=== PATIENT | female | born 1980 | race Hispanic/Latino ===

== ENCOUNTER 2020-06-11 06:36 | Day surgery (SDC) | payer BC ==
[2020-06-06 11:54] LABS: Absolute Lymphocytes (CBC) 2.5 K/uL (0.7-4.9); Basophils % 0.5 % (0-1.3); Hematocrit 35.5 % (36.0-45.0); Lymphocytes % 41.4 % (15.3-44.8); MPV 9.4 fL (7.6-11.3); RBC Red Blood Cell Count 4.13 M/uL (3.86-4.86)
[2020-06-06 12:21] LABS: Albumin 3.8 g/dL (3.4-5.0); Bilirubin Direct 0.1 mg/dL (0-0.2); Bilirubin Total 0.6 mg/dL (0.2-1.0); Potassium 3.8 mmol/L (3.5-5.1); Protein, Total 7.5 g/dL (6.4-8.2)
--- OUTSIDE RECORDS SUMMARY | 2020-06-11 06:40 | XMS REPORT | Continuity of Care Document ---
:1980 Author Organization [facility] t Address [address] [place] [address] Care Team Providers Name Role Phone Unavailable Unavailable Unavailable Payers Payer Name Policy Type Policy Number Effective Date Expiration Date S ource Problems This patient has no known problems. Allergies, Adverse Reactions, Alerts Allergy Allergy Status Severity Reaction(s) Onset Inactive Treating Comm ents Source Name Type Date Date Clinician No Known DA Active [facility]10 [facility] [place] Medications This patient has no known medications. Procedures This patient has no known procedures. Results Test Description Test Time Test Comments Results Result [facility] linda Comments [facility] 2020-04-11 TRIMESTER 15:29:00 --------RUN DATE: 04/14/20 [facility] PAGE 1 RUN TIME: 918 Specimen Inquiry RUN USER: INTERFACE --------[id number] #: [id number] AGE/SX: 39/F ROOM: 2051 RE04/10/20REG DR: Jaime Talbot MD : 82 BED: A DIS: 04/12/20 STATUS: DIS IN TLOC: -------- SPEC #: [id number] RECD: 04/10/20 STATUS: YAMIL RE #: [id number] YULIYA: 04/10/20- SUBM DR: Jaime Talbot MD ENTERED: 04/10/20 SP TYPE: PLACIII OTHR DR: ORDERED: LEVEL V SURGICA/3 CODES: [id number] - FALLOPIAN TUBE [id number] - PLACENTA, NOS PROCEDURES: LEVEL V SURGICA (Incomplete) TISSUES: PLACENTA, NOS - PLACENTA FALLOPIAN TUBE, NOS - BILATERAL FALLOPIAN TUBES CLINICAL HISTORY 39 year old, 38 weeks, section, 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 Left tube 2. Right tube 3. Placenta Each specimen is labeled with the patient's name and medical record number. Specimen #1 is designated "left tube" and consists of a 5.0 x 0.5 cm fallopian tube segment with fimbriae. Sectioning reveals a pinpoint lumen. Industrial Engineering Intern CONTINUED ON NEXT PAGE --------RUN DATE: 04/14/20 [facility] PAGE 2 RUN TIME: 918 Specimen Inquiry RUN USER: INTERFACE --------SPEC #: [id number] PATIENT: BRAYAN BLEVINS #[id number] (Continued) GROSS DESCRIPTION (Continued) sections are submitted in A1. Specimen #2 is designated "right tube" and consists of a 6.5 x 0.7 cm daniels-pink fallopian tube segment with fimbriae. Sectioning reveals a pinpoint lumen. Industrial Engineering Intern sections are submitted in B1. Specimen #3 was received in a container, labeled with the patient's name, unit number and designated "placenta". The following attributes are observed: Cord insertion: 8 cm from margin Cord length: 85 cm Number of vessels: 3 Cord color: Daniels-white Other cord findings: None surface findings: Blue-purple, wrinkled, glistening Vasculature: Displays unremarkable blood vasculature Membranes rupture site: 10 cm to margin Membrane color: Daniels-pink Other membrane findings: Semi-translucent The trimmed placental weight: 875 gm Disk measurement: 20 x 20 x 3 cm in greatest dimension Accessory lobes: None Maternal surface: Lobulated and disrupted, completeness cannot be determined Parenchyma: Red-brown and spongy Parenchyma lesions: None Cassettes: C1 through C4 wilbur 04/10/20 Signed Peyton Martinez MD 04/11/20 1529 -------- END OF REPORT RUBELLA SCREEN 2020-04-11 06:27:00 Test Item Value Reference Range Interpretation Comme nts RUBELLA SCREEN (test code = >500.0 IUnit/ml Results >10.0IUnits/ml are considered RUBSC) positive inacco rdance with the CLSI guidelines and based on the WHO International S tandard for Anti-Rubella se rum as anindicator of immune status a nd a breakpoint to detect mostsero positive persons. HGB [id number] 06:02:00 Test Item Value Reference Range Interpretation Comments HEMOGLOBIN (test code = HGB) 9.0 g/dL 10.7-13.9 L HEMATOCRIT (test code = HCT) 29.4 % 32.1-42.1 L AG HEPATITIS B [id number] 18:48:00 Test Item Value Reference Range Interpretation Comments AG HEPATITIS B SURFACE (test code NONREACTIVE NONREACTIVE = HBSAG) IS CONSENT FORM SIGNED FOR HIV TESTING? YAB HEPATITIS C [id number] 18:48:00 Test Item Value Reference Range Interpretation Comments AB HEPATITIS C (test code = NONREACTIVE NONREACTIVE HCVAB) SIGNAL TO CUTOFF (test code = 0.03 <0.80 N CUTOFF) IS CONSENT FORM SIGNED FOR HIV TESTING? YAB [id number] 18:48:00 Test Item Value Reference Range Interpretation Comments AB TREPONEMA (test code = TREPAB) NONREACTIVE NONREACTIVE IS CONSENT FORM SIGNED FOR HIV TESTING? YAB HIV 1 18:48:00 Test Item Value Reference Range Interpretation Comments AB HIV 1 2 (test NONREACTIVE NONREACTIVE Done by [facility] code = [id number]) 4th Gen HIV Ag/Ab Combo Screen IS CONSENT FORM SIGNED FOR HIV TESTING? YAG HEPATITIS B [id number] 18:45:00 Test Item Value Reference Range Interpretation Comments AG HEPATITIS B SURFACE (test code NONREACTIVE NONREACTIVE = HBSAG) IS CONSENT FORM SIGNED FOR HIV TESTING? VIKASB HEPATITIS C [id number] 18:45:00 Test Item Value Reference Range Interpretation Comments AB HEPATITIS C (test code = HCVAB) NONREACTIVE SIGNAL TO CUTOFF (test code = CUTOFF) <0.80 IS CONSENT FORM SIGNED FOR HIV TESTING? VIKASB [id number] 18:45:00 Test Item Value Reference Range Interpretation Comments AB TREPONEMA (test code = TREPAB) NONREACTIVE NONREACTIVE IS CONSENT FORM SIGNED FOR HIV TESTING? YAB HIV 1 18:45:00 Test Item Value Reference Range Interpretation Comments AB HIV 1 2 (test code = [id number]) NONREACTIVE IS CONSENT FORM SIGNED FOR HIV TESTING? YAG HEPATITIS B [id number] 18:45:00 Test Item Value Reference Range Interpretation Comments AG HEPATITIS B SURFACE (test code NONREACTIVE NONREACTIVE = HBSAG) IS CONSENT FORM SIGNED FOR HIV TESTING? YAB HEPATITIS C [id number] 18:45:00 Test Item Value Reference Range Interpretation Comments AB HEPATITIS C (test code = NONREACTIVE NONREACTIVE HCVAB) SIGNAL TO CUTOFF (test code = 0.03 <0.80 N CUTOFF) IS CONSENT FORM SIGNED FOR HIV TESTING? YAB [id number] 18:45:00 Test Item Value Reference Range Interpretation Comments AB TREPONEMA (test code = TREPAB) NONREACTIVE NONREACTIVE IS CONSENT FORM SIGNED FOR HIV TESTING? YAB HIV 1 18:45:00 Test Item Value Reference Range Interpretation Comments AB HIV 1 2 (test code = PMS99SE) NONREACTIVE IS CONSENT FORM SIGNED FOR HIV TESTING? YCOVID 19 Asymptomatic IH [id number] 17:47:00 Test Item Value Reference Range Interpretation Comments COVID 19 NEGATIVE NEGATIVE This test has b een Asymptomatic IH AG authorize d only for the (test code = detection ofpro teins from COVNONPUIAG) SARS-CoV-2, not for any other viruses orpathogens. N egative results should be treated as presumptive andconfirmed wi th a molecular assay , if necessary for patientmanageme nt. Negative result s do not rule out COVID- 19 andshould not b e used as the sole basis for treatment orpat ient management deci sions, including infec tion controldecision s. Negative result s should be considered i n thecontext of a patient's recent exposure s, history and thepresence of clinical signs and symptoms consis tent withCOVID-19. T his test has not been FD A cleared or approved; th e test hasbeen authori pankaj by FDA under an Emerge ncy Use Authorization(E UA) for use by saraato lolis certified under the CLIA thatmeet the re quirements to perform mode rate, high or waivedcomple xity tests. This gennaro t is authorized for use at thePoint of Car e (POC), i.e., in patien t care settingsoperati ng under a CLIA Certificat e of Waiver, Certifi lelia ofCompliance, o r Certificate of Accreditation. This test is only authori pankaj for the duration of thedeclaration that circumstances e xist justifying theauthorizatio n of emergency use o f in vitro diagnostic test sfor detection and/o r diagnosis of CO VID-19 under Bdoxaly52 4(b)(1) of the Act, 21 U.S .C. 360bbb-3(b)(1), unless theauthorizatio n is terminated or r evoked sooner. CBC W/AUTO [id number] 17:31:00 Test Item Value Reference Range Interpretation Comments WHITE BLOOD CELL (test code = WBC) 7.1 K/mm3 6.6-12.1 N RED BLOOD CELL (test code = RBC) 4.20 M/mm3 3.45-5.01 N HEMOGLOBIN (test code = HGB) 11.8 g/dL 10.7-13.9 N HEMATOCRIT (test code = HCT) 37.9 % 32.1-42.1 N MEAN CELL VOLUME (test code = MCV) 90 fL 84.1-94.8 N MEAN CELL HGB (test code = MCH) 28.1 pg 27-35 N MEAN CELL HGB CONCETRATION (test 31.1 gm/dL 32.2-34.1 L code = MCHC) RED CELL DISTRIBUTION WIDTH (test 16.0 % 12.4-16.5 N code = RDW) PLATELET COUNT (test code = PLT) 165 K/mm3 133-385 N MEAN PLATELET VOLUME (test code = 13.0 fl 9.1-12.7 H MPV) NEUTROPHIL % (test code = NT%) 67.3 % 56.5-79.4 N LYMPHOCYTE % (test code = LY%) 25.1 % 14.3-34.3 N MONOCYTE % (test code = MO%) 6.2 % 5.1-10.4 N EOSINOPHIL % (test code = EO%) 0.6 % 0.1-3.0 N BASOPHIL % (test code = BA%) 0.4 % 0.1-1.0 N NEUTROPHIL # (test code = NT#) 4.8 K/mm3 LYMPHOCYTE # (test code = LY#) 1.8 K/mm3 MONOCYTE # (test code = MO#) 0.4 K/mm3 EOSINOPHIL # (test code = EO#) 0.04 K/mm3 BASOPHIL # (test code = BA#) 0.0 K/mm3 RBC MORPHOLOGY REQUIRED (test code NORMAL NORMAL = RBCM) PLATELET MORPHOLOGY REQUIRED (test NORMAL NORMAL code = PLTMR)
[2020-06-11] MEDS ORDERED: Ringers Lactate 1,000 ML IV ONE (07:07)
[2020-06-11] MEDS ORDERED: MIDAZOLAM HCL 2 MG/2 ML INJ ONE (07:31)
[2020-06-11] MEDS ORDERED: propofoL 200 MG/20 ML VIAL IV ONE (07:31)
[2020-06-11] MEDS ORDERED: FENTANYL CITR 100 MCG/2 ML ONE ×2 (07:31→08:09)
[2020-06-11] MEDS ORDERED: LIDOCAINE 1% MPF 5 ML VIAL ONE (07:32)
[2020-06-11] MEDS ORDERED: ROCURONIUM 50 MG/5 ML VIAL IV ONE (07:32)
[2020-06-11] MEDS: CEFOXITIN/SWI 1gm 1 GM/10 ML SYR ONE ×2 (07:47→07:50)
[2020-06-11] MEDS ORDERED: KETOROLAC 30 MG/ML INJ ONE (08:18)
[2020-06-11] MEDS ORDERED: ONDANSETRON 4 MG/2 ML VIAL ONE (08:18)
[2020-06-11] MEDS ORDERED: NEOSTIGMINE 1 MG/ML -5 ML ONE (08:18)
[2020-06-11] MEDS ORDERED: GLYCOPYRROLATE 0.2 MG/ML SYR ONE ×3 (08:18→08:19)
[2020-06-11] MEDS ORDERED: dexAMETHasone 10 MG/ML VIAL ONE (08:18)
[2020-06-11] MEDS: Ringers Lactate 1,000 ML IV ONE ×2 (08:27→08:40)
--- NOTE | 2020-06-11 09:23 | P.BOP ---
Preoperative diagnosis: acute cholecystitis,symptomatic cholelithiasis Postoperative diagnosis: same, umbilical hernia Primary procedure: Laparoscopic cholecystectomy Secondary procedure: Umbilical hernia repair Permanent Waver: [facility] Canchola ([place]) Estimated blood loss: <10cc Specimen: gb Findings: as above Anesthesia: General Complications: None Transferred to: Recovery Room Condition: Good
[2020-06-11] MEDS ORDERED: CODEINE 30MG/APAP 300MG TAB ONE (10:12)
[2020-06-11 12:06] VITALS: BP 114/62; TEMP 97.2; O2SAT 98
--- NOTE | 2020-06-11 12:19 | OP ---
Date of Procedure: 06/11/2020 Surgeon: Gunnar England MD Scarfer Operator: JENNY Fan. Diagnoses: 1.Acute cholecystitis. 2.Symptomatic cholelithiasis. Postoperative Diagnoses: 1.Acute cholecystitis. 2.Symptomatic cholelithiasis. 3.Umbilical hernia. Procedure: 1.Laparoscopic cholecystectomy. 2.Repair of umbilical hernia. Finding: The patient has omentum, umbilical hernia. The patient has a cholecystitis. Anesthesia: General plus local. Indication: This is a case of a female who comes to us with the above diagnosis. Fully explained th e benefits, alternatives, and risks of laparoscopy, possible open cholecystectomy, which include, but not limited to infection, bleeding, damage to adjacent structures, anesthesia complication, choledoc holithiasis, bile leak, pancreatitis, CA, and even . She also understands this may not relieve her symptoms. She might need more than one surgical intervention. She understood, signed a consent. Description Of Procedure: The patient was brought to the operating room, placed in supine position. Anesthesia was done without complication. Abdominal area was prepped and draped in sterile fashion. Marcaine 0.5% was injected for local anesthetic followed by sharp incision of the skin in the infra umbilical region. Immediately, we noticed the patient to have a small umbilical hernia and hernia sa c was removed from umbilical skin, sent for specimen. Fascia edges were continued to be open. Vicry l #1 was placed inside the fascia. Donavon trocar was carefully introduced. No bleeding was obtained . I placed 3 more trocars 5 mm each one of them in epigastric upper quadrant area under direct visua lization. This allowed me to put a grasper in the fundus of the gallbladder and another grasper in t he infundibulum, retracted the gallbladder in the inferolateral fashion exposing the triangle of [place] t obtaining critical view. Cystic duct and cystic artery were clearly isolated, freed circumferentia lly and a connection between those and the gallbladder were clearly identified. I proceeded to ligat e those by using at least 3 clips proximal, 1 clip distal, ligation in middle. Same was done with th e cystic artery. No bile leak. No bleeding. The gallbladder was removed from liver using Bovie cau terizer and removed from abdominal cavity using EndoCatch through the umbilical incision. The area w as inspected once again. No bile leak. No bleeding. At that moment, I proceeded to remove the troc ars under direct vision, deflated pneumoperitoneum, closed the fascia and umbilical hernia with #1 Vi cryl. Irrigated subcutaneous tissue. Subcutaneous tissue was closed with 3-0 chromic and skin in lerner bcuticular fashion with 3-0 chromic and Steri-Strips on top. Sponge count, instrument counts were co rrect. The patient tolerated the procedure well. The patient was sent to Recovery in stable conditi on. BOBBI/MAAME Voice ID: [id number] Report ID: [id number]
--- NOTE | 2020-06-11 12:38 | DS ---
Diagnoses: 1.Acute cholecystitis. 2.Symptomatic cholelithiasis. 3.Umbilical hernia. Procedure: 1.Laparoscopic cholecystectomy. 2.Umbilical hernia repair. Disposition: Home. Activity: As tolerated. No heavy lifting. Plan: Follow up in my office in 1 week. Call for appointment at [phone]. Medications: See orders. BOBBI/MAAME Voice ID: [id number] Report ID: [id number]
== END 2020-06-11 10:45 | disposition home or self-care (01) ==
LOC: OR 06:36
PROVIDERS: ATTEND Surgery
PROC: 0WQF4ZZ Repair Abdominal Wall, Percutaneous Endoscopic Approach (ICD-10-PCS; 2020-06-11)
PROC: 0FT44ZZ Resection of Gallbladder, Percutaneous Endoscopic Approach (ICD-10-PCS; principal; 2020-06-11 07:30)
DX: K80.00 Calculus of gallbladder with acute cholecystitis without obstruction (principal); K42.9 Umbilical hernia without obstruction or gangrene; Z20.828 Contact with and (suspected) exposure to other viral communicable diseases
CPT/HCPCS: 85025; 80048; 36415 ×2; 82150; 84703; 80076; 88302; 88304; 83690; 47562; 49652; U0002; J2704; J2250; J3010 ×2; J1100; J2710; J7120 ×2; J2405